=== PATIENT | female | born 1950 | race Caucasian/White ===

== ENCOUNTER 2016-08-28 16:52 | Emergency (ER) | payer MEDICAID ==
[2016-08-28 17:10] VITALS: BMI 34.0
[2016-08-28 17:12] VITALS: TEMP 98.5
[2016-08-28] MEDS ORDERED: Naproxen 550 mg Tab PO STA (17:19)
--- NOTE | 2016-08-28 17:23 | C.PDOC ---
History Of Present Illness 66 yr old female with PMHx of HTN, presents to the ER with complaints of left knee and leg pain for the past 1 week. Patient reports of pain just to the posterior leg. Patient denies trauma, fall, fever, chest pain, SOB, abdominal pain, back pain, weakness or numbness. Time Seen by Provider: 08/28/16 17:13 Chief Complaint (Nursing): Lower Extremity Problem/Injury History Per: Patient History/Exam Limitations: no limitations Onset/Duration Of Symptoms: Days (1 week) Past Medical History Reviewed: Historical Data, Nursing Documentation, Vital Signs Vital Signs: Last Vital Signs Temp 98.5 F 08/28/16 17:10 Pulse 74 08/28/16 17:10 Resp 20 08/28/16 17:10 BP 118/76 08/28/16 17:10 Pulse Ox 96 08/28/16 18:17 - Medical History PMH: Diverticulitis, Gall Bladder Disease, HTN, Kidney Stones, Peripheral Edema , Chronic Kidney Disease Surgical History: Cholecystectomy - [facility] Procedures REMOV URETERAL DRAIN (11/27/14) URETERAL CATHETERIZATION (07/17/14) Family History: States: No Known Family Hx - Social History Hx Alcohol Use: No Hx Substance Use: No - Immunization History Hx Tetanus Toxoid Vaccination: No Hx Influenza Vaccination: No Hx Pneumococcal Vaccination: No Review Of Systems Except As Marked, All Systems Reviewed And Found Negative. Constitutional: Negative for: Fever Cardiovascular: Negative for: Chest Pain Respiratory: Negative for: Shortness of Breath Gastrointestinal: Negative for: Abdominal Pain Musculoskeletal: Positive for: Leg Pain (Left knee ), Other (Left knee pain. ) . Negative for: Back Pain Neurological: Negative for: Weakness, Numbness Physical Exam - Physical Exam Appears: Well, Non-toxic, No Acute Distress Skin: Warm, Dry, No Rash Head: Atraumatic, Normacephalic Oral Mucosa: Moist Neck: Normal, Normal ROM, Supple Chest: Symmetrical, No Tenderness Cardiovascular: Rhythm Regular, No Murmur Respiratory: Normal Breath Sounds, No Rales, No Rhonchi, No Stridor, No Wheezing Back: Normal Inspection, No CVA Tenderness Extremity: Normal ROM, Tenderness (Left knee tenderness), Calf Tenderness (Left) , Capillary Refill (<2), No Deformity, Swelling (Left knee mild swelling ) Pulses: Left Femoral: Normal, Right Femoral: Normal, Left Dorsalis Pedis: Normal , Right Dorsalis Pedis: Normal Neurological/Psych: Oriented x3, Normal Speech, Normal Motor ED Course And Treatment - Laboratory Results Result Diagrams: 08/28/16 17:30 08/28/16 17:30 O2 Sat by Pulse Oximetry: 96 - Other Rad X-Ray - Left Knee X-Ray: Viewed By Me, Read By Radiologist Interpretation: PROCEDURE: Left Knee Radiographs. HISTORY: COMPARISON: No prior. FINDINGS: BONES: No acute displaced fracture. Degenerative changes including tenting of the intercondylar notch. 6 mm sclerotic focus within the lateral distal femur, possibly bone island. JOINTS: No dislocation. JOINT EFFUSION: Small suprapatellar joint effusion. OTHER FINDINGS: Soft tissue swelling. No evidence of radiopaque foreign body. IMPRESSION: Degenerative changes. Small suprapatellar joint effusion. Soft tissue swelling. Medical Decision Making Medical Decision Making: PLAN: * X-Ray - Left Knee * CBC * D-Dimer * Naproxen PO r/o dvt vs fx vs athritis. - normal rom, no warmth, erythema, no clinical concern for infected knee 612: pt reassesed. pain improve.d imaging neg. no clincial concern for infected knee as not warm normal rom. imaging shows degenerative changes, dimer neg. dvt less likely. pt advised outpt f/u and return precautions Disposition - Disposition Referrals: [facility] [Outside] [facility] [Outside] [facility] [Outside] Syed Joya III, MD [Staff Provider] - Disposition: HOME/ ROUTINE Disposition Time: 18:13 Condition: STABLE Additional Instructions: please follow up with your doctor. return to er with worsening symptoms or concerns. Prescriptions: Naproxen [Naprosyn] 500 mg PO BID PRN #14 tab PRN Reason: Pain, Mild (1-3) Instructions: Knee Pain (ED), Leg Pain (ED) Print Language: SUDANESE - Clinical Impression Clinical Impression: Knee pain, Leg pain - Scribe Statement The provider has reviewed the documentation as recorded by the Leatha Power Provider Attestation: All medical record entries made by the Aleksandraibeverardo were at my direction and personally dictated by me. I have reviewed the chart and agree that the record accurately reflects my personal performance of the history, physical exam, medical decision making, and the department course for this patient. I have also personally directed, reviewed, and agree with the discharge instructions and disposition.
[2016-08-28] MEDS ORDERED: Naproxen 550 mg Tab PO ONE (17:25)
[2016-08-28 17:33] LABS: BASO % 0.6 % (0.0-2.0); EOS # 0.2 K/uL (0.0-0.7); EOS % 3.5 % (0.0-4.0); HEMATOCRIT 37.3 % (34.0-47.0); LYMPH # 2.5 K/uL (1.0-4.3); LYMPH % 36.2 % (20.0-40.0); MEAN CELL VOLUME 93.7 fL (81.0-99.0); MEAN CORPUSCULAR HEMOGLOBIN 31.5 pg (27.0-31.0); MEAN CORPUSCULAR HGB CONC 33.6 g/dL (33.0-37.0); MEAN PLATELET VOLUME 7.7 fL (7.2-11.7); MONO # 0.5 K/uL (0.0-0.8); MONO % 7.4 % (0.0-10.0); RED CELL DISTRIBUTION WIDTH 13.8 % (11.5-14.5)
[2016-08-28 17:40] LABS: CHLORIDE 94 mmol/L (98-107)
[2016-08-28 17:41] LABS: POTASSIUM 3.5 mmol/L (3.6-5.2); SODIUM 137 mmol/L (132-148)
[2016-08-28 17:43] LABS: CARBON DIOXIDE 28 mmol/L (22-30); GFR AFRICAN-AMERICAN > 60
[2016-08-28 17:44] LABS: ALB/GLOB RATIO 1.1 (1.0-2.1); ALKALINE PHOSPHATASE 100 U/L (38-126); ALT/SGPT 21 U/L (9-52); AST/SGOT 23 U/L (14-36); BILIRUBIN,TOTAL 0.5 mg/dL (0.2-1.3); BLOOD UREA NITROGEN 16 mg/dL (7-17); CALCIUM 9.5 mg/dl (8.6-10.4); GLUCOSE,RANDOM 163 mg/dL (65-105); TOTAL PROTEIN 7.3 g/dL (6.3-8.3)
[2016-08-28 18:08] LABS: INR 0.9; PARTIAL THROMBOPLASTIN TIME 27 SECONDS (21-34)
--- NOTE | 2016-08-28 18:09 | RAD ---
PROCEDURE: Left Knee Radiographs. HISTORY: COMPARISON: No prior. FINDINGS: BONES: No acute displaced fracture. Degenerative changes including tenting of the intercondylar notch. 6 mm sclerotic focus within the lateral distal femur, possibly bone island. JOINTS: No dislocation. JOINT EFFUSION: Small suprapatellar joint effusion. OTHER FINDINGS: Soft tissue swelling. No evidence of radiopaque foreign body. IMPRESSION: Degenerative changes. Small suprapatellar joint effusion. Soft tissue swelling.
[2016-08-28 18:37] VITALS: BP 136/85; PULSE 78; RESP 18; O2SAT 97
== END 2016-08-28 18:35 | disposition home or self-care (01) ==
LOC: C.ER 16:52
DX: M25.562 Pain in left knee (principal)